=== PATIENT | male | born 1960 | race Caucasian/White ===

== ENCOUNTER 2017-02-10 11:45 | Emergency (ER) | payer BC ==
[~2017-02-10 11:45] MED LIST: Iopamidol 370 76% 100 ML VIAL ONE
[2017-02-10 13:17] LABS: #Basophils 0.1 thou/uL (0.0-0.2); #Lymphocytes 0.9 thou/uL (1.20-3.40); #Monocytes 0.8 thou/uL (0.11-0.59); #Neutrophils 9.8 thou/uL (1.40-6.50); %Basophils 1.1 % (0.0-1.0); %Eosinophils 0.2 % (0.0-10.0); %Lymphocytes 7.4 % (21.0-51.0); %Monocytes 6.6 % (0.0-10.0); Hematocrit 45.3 % (42.0-52.0); Mean Platelet Volume 9.9 fL (7.4-10.4); Red Blood Cell (RBC) Count 4.87 mill/uL (4.70-6.10); White Blood Cell (WBC) Count 11.6 thou/uL (4.8-10.8)
[2017-02-10 13:31] LABS: ALT (SGPT) 15 U/L (8-55); AST (SGOT) 15 U/L (5-34); Alkaline Phosphatase 56 U/L (40-150); Anion Gap 14 mmol/L (10-20); BUN (Urea Nitrogen) 17 mg/dL (8.4-25.7); Bilirubin, Total 0.6 mg/dL (0.2-1.2); Calc. Creatinine Clearance 0 mL/min (70-130); Calcium 8.6 mg/dL (7.8-10.44); Carbon Dioxide 24 mmol/L (22-29); Chloride 103 mmol/L (98-107); Estimated GFR-MDRD 79; Globulin 3.4 g/dL (2.4-3.5)
--- NOTE | 2017-02-10 13:33 | RAD ---
TWO VIEWS CHEST: History: Cough, shortness of breath. FINDINGS: Lung olvera are clear. Heart and mediastinum are unremarkable. Osseous structure unremarkable. IMPRESSION: Unremarkable chest. POS: [facility]
[2017-02-10 13:35] LABS: Troponin I Less than 0.010 ng/mL (< 0.028)
--- NOTE | 2017-02-10 15:41 | CT ---
CT ANGIOGRAM THORAX WITH IV CONTRAST AND 3D RECONSTRUCTIONS: Date: 02/10/17 HISTORY: Pleuritic chest pain. FINDINGS: No filling defects are seen in the pulmonary arteries to suggest a pulmonary embolus. The thoracic ao rta is normal in caliber without evidence of an aortic dissection. There is patchy parenchymal opacity seen at the posteromedial aspect of the left lung base, which may be related to either atelectasis or pneumonia. There is increased soft tissue density in the left hi lar region suggesting mildly prominent lymph nodes. There are also mildly prominent lymph nodes in th e region of the AP window, although not enlarged by CT size criteria, but these lymph nodes may be re active in origin. The right lung is clear. No pleural effusion is seen. There is a hiatal hernia with the fundus of the stomach above the level of the hemidiaphragms. Visual ized upper abdomen has a normal CT appearance. IMPRESSION: 1. Parenchymal density at the left lung base which could be related to atelectasis, but aspiration p neumonitis or pneumonia is a possibility. 2. Mildly prominent mediastinal and left hilar lymph nodes, which are overall non-specific and not p articularly enlarged by CT size criteria, but are more prominent than expected and may be reactive in origin. 3. No CT evidence of a pulmonary embolus. POS: [facility]
[2017-02-10] MEDS ORDERED: Sodium Chloride 0.9% 100 ML ONE (15:42)
[2017-02-10] MEDS ORDERED: cefTRIAXone\\ROCEPHIN 1 GM VIAL ONE (15:42)
[2017-02-10 16:41] LABS: Troponin I Less than 0.010 ng/mL (< 0.028)
== END 2017-02-10 17:13 | disposition home or self-care (01) ==
LOC: SCSER 11:45
DX: J18.9 Pneumonia, unspecified organism (principal); J45.909 Unspecified asthma, uncomplicated; F32.9 Major depressive disorder, single episode, unspecified
CPT/HCPCS: 36415; 71020; 71275; 80053; 82553; 84484; 85025; 85379; 87040; 93005; 96361; 96365; J0696; J7050

== ENCOUNTER 2018-12-28 20:17 | Emergency (ER) | payer BC ==
[2018-12-28] MEDS ORDERED: Ketorolac Tromethamine 30 MG/ML VIAL ONE ×2 (20:35→21:59)
[2018-12-28 20:52] LABS: #Basophils 0.1 thou/uL (0.0-0.2); #Eosinphils 0.3 thou/uL (0.0-0.7); #Monocytes 0.8 thou/uL (0.11-0.59); #Neutrophils 3.2 thou/uL (1.40-6.50); %Basophils 1.3 % (0.0-1.0); %Eosinophils 3.8 % (0.0-10.0); %Lymphocytes 40.5 % (21.0-51.0); %Monocytes 10.8 % (0.0-10.0); %Neutrophils 43.6 % (42.0-75.0); Mean Corpuscular HGB CONC 34.1 g/dL (32.0-36.0); Mean Corpuscular Hemoglobin 30.8 pg (27.0-31.0); Mean Corpuscular Volume 90.3 fL (78.0-98.0); Mean Platelet Volume 8.7 fL (7.4-10.4); Platelet Count 243 thou/uL (130-400); RBC Distribution Width 11.6 % (11.5-14.5); Red Blood Cell (RBC) Count 4.86 mill/uL (4.70-6.10); White Blood Cell (WBC) Count 7.3 thou/uL (4.8-10.8)
[2018-12-28 20:59] LABS: PTT 26.2 SEC (22.9-36.1)
[2018-12-28 21:00] LABS: INR-International Normal Ratio 0.9; Prothrombin Time 11.9 SEC (12.0-14.7)
[2018-12-28 21:01] LABS: D-Dimer Test 0.38 *mcg/mL (0.27-0.43)
[2018-12-28 21:06] LABS: ALT (SGPT) 20 U/L (8-55); AST (SGOT) 19 U/L (5-34); Albumin 3.9 g/dL (3.5-5.0); Alkaline Phosphatase 56 U/L (40-110); Anion Gap 15 mmol/L (10-20); BUN (Urea Nitrogen) 18 mg/dL (8.4-25.7); Bilirubin, Total 0.6 mg/dL (0.2-1.2); CK (CPK) 114 U/L (30-200); Calc. Creatinine Clearance 0 mL/min (70-130); Calcium 8.8 mg/dL (7.8-10.44); Carbon Dioxide 24 mmol/L (22-29); Chloride 104 mmol/L (98-107); Estimated GFR-MDRD Greater than 90; Glucose 131 mg/dL (70-105); Potassium 4.4 mmol/L (3.5-5.1); Protein, Total 6.9 g/dL (6.0-8.3); Sodium 139 mmol/L (136-145)
[2018-12-28] MEDS ORDERED: Adacel (T-DAP) 0.5 ML SYRINGE ONE (21:08)
== END 2018-12-28 22:38 | disposition left against medical advice (07) ==
LOC: SCSER 20:17
DX: S91.351A Open bite, right foot, initial encounter (principal); J45.909 Unspecified asthma, uncomplicated; F32.9 Major depressive disorder, single episode, unspecified; Z79.51 Long term (current) use of inhaled steroids; Z23 Encounter for immunization; W59.11XA Bitten by nonvenomous snake, initial encounter
CPT/HCPCS: 36415; 80053; 82550; 85025; 85379; 85610; 85730; 90471; 90715; 96374; 96376; J1885